=== PATIENT | male | born 1985 | race African-American/Black ===

== ENCOUNTER 2020-07-23 13:13 | Inpatient (IN) | payer BC ==
[~2020-07-23] VITALS: Ht 175.3 cm; Wt 106.0 kg
[2020-07-23] MEDS ORDERED: ESOM40CA PO (13:21)
[2020-07-23] MEDS ORDERED: FAMO40TA61 PO (13:21)
[2020-07-23] MEDS ORDERED: BICT1TAB PO (13:21)
[2020-07-28] MEDS ORDERED: MEPERIDINE/PF 25MG/0.5ML IVPush PRN (08:30)
[2020-07-28] MEDS ORDERED: OXYcodone 5 MG/5 ML ORAL.SOL UDC PO PRN (08:30)
[2020-07-28] MEDS ORDERED: hydrALAzine 20 MG/ML, 1ML IV PRN (08:30)
[2020-07-28] MEDS ORDERED: PROMETHAZINE 25 MG/ML, 1ML IVPush PRN (08:30)
[2020-07-28] MEDS ORDERED: ACETAMINOPHEN 325 MG TABLET PO PRN (08:30)
[2020-07-28] MEDS ORDERED: LABETALOL 5MG/ML, 20ML IV PRN (08:30)
[2020-07-28] MEDS ORDERED: METHOCARBAMOL 1,000 MG in DEXTROSE 5% 100 ML IV PRN (08:30)
[2020-07-28] MEDS ORDERED: HYDROmorphone 1 MG/ML, 1ML INJ IVPush PRN (08:30)
[2020-07-28] MEDS ORDERED: EPHEDRINE 50 MG/ML, 1ML IVPush PRN (08:30)
[2020-07-28] MEDS ORDERED: ONDANSETRON 2MG/ML, 2ML IVPush PRN ×2 (08:30→13:00)
[2020-07-28] MEDS ORDERED: CHLORHEXIDINE 15 ML UDC ONE (09:17)
[2020-07-28] MEDS ORDERED: LACTATED RINGERS 1,000 ML IV SCH (09:30)
[2020-07-28] MEDS ORDERED: CHLORHEXIDINE 15 ML UDC MM ONE (09:30)
[2020-07-28] MEDS ORDERED: BUPIVACAINE/PF 0.5% ONE (10:41)
[2020-07-28] MEDS ORDERED: EPINEPHRINE 1 MG/ML, 1ML ONE (10:41)
[2020-07-28] MEDS ORDERED: GLYCOPYRROLATE 0.2MG/1ML, 5ML ONE (11:21)
[2020-07-28] MEDS ORDERED: CEFAZOLIN 1,000 MG ONE (11:21)
[2020-07-28] MEDS ORDERED: DEXAMETHASONE 4 MG/ML, 1ML ONE (11:21)
[2020-07-28] MEDS ORDERED: ONDANSETRON 2MG/ML, 2ML ONE (11:21)
[2020-07-28] MEDS ORDERED: SUCCINYLCHOLINE 20 MG/ML, 10ML ONE (11:21)
[2020-07-28] MEDS ORDERED: PROPOFOL 10 MG/ML, 20ML ONE (11:21)
[2020-07-28] MEDS ORDERED: NEOSTIGMINE 1 MG/ML, 10ML ONE (11:21)
[2020-07-28] MEDS ORDERED: BUPIVACAINE/PF-EPI 0.5% 1:200K INFIL ONE (11:21)
[2020-07-28] MEDS ORDERED: FENTANYL PF 250 MCG/5ML ONE (11:25)
[2020-07-28] MEDS ORDERED: FENTANYL PF 100 MCG/2ML ONE ×3 (11:56→13:15)
[2020-07-28] MEDS ORDERED: DIPHENHYDRAMINE 50 MG/ML, 1ML IV PRN (13:00)
[2020-07-28] MEDS ORDERED: ENALAPRILAT 1.25 MG/ML, 2ML IV PRN (13:00)
[2020-07-28] MEDS ORDERED: PHENOL THROAT SPRAY BOTTLE MM PRN (13:00)
[2020-07-28] MEDS ORDERED: hydrALAzine 20 MG/ML, 1ML IVPush PRN (13:00)
[2020-07-28] MEDS ORDERED: PROMETHAZINE 25 MG/ML, 1ML IM PRN (13:00)
[2020-07-28] MEDS ORDERED: morphine SULFATE 10 MG/ML, 1ML IVPush PRN (13:00)
[2020-07-28] MEDS ORDERED: PROMETHAZINE 12.5 MG SUPP PR PRN (13:00)
[2020-07-28] MEDS ORDERED: LORazepam 2 MG/ML, 1ML IV PRN (13:00)
[2020-07-28] MEDS ORDERED: OXYcodone 5 MG/5 ML ORAL.SOL UDC ONE (13:16)
[2020-07-28] MEDS: FENTANYL PF 100 MCG/2ML IV PRN ×2 (13:16→13:21)
[2020-07-28] MEDS: HYDROcodone/APAP 7.5-325MG/15ML UDC PO PRN (18:07)
[2020-07-28 19:24] VITALS: BP 122/81
[2020-07-28] MEDS: FAMOTIDINE 20 MG/2 ML IVPush SCH (22:09)
[2020-07-28 23:53] VITALS: BP 117/74
[2020-07-29] MEDS ORDERED: LACTATED RINGERS 1,000 ML IV SCH (02:00)
[2020-07-29] MEDS: HYDROcodone/APAP 7.5-325MG/15ML UDC PO PRN (02:41)
[2020-07-29 02:59] VITALS: BP 132/82
[2020-07-29 06:05] LABS: MEAN CORPUSCULAR HEMOGLOBIN 20.5 pg (27.5-34.5); MEAN CORPUSCULAR HGB CONC 31.1 g/dL (33.2-36.2); MEAN PLATELET VOLUME 9.3 fL (7.4-10.4); PLATELET COUNT 223 x10^3/uL (130-400); RED BLOOD COUNT 5.28 x10^6/uL (4.38-5.82); RED CELL DISTRIBUTION WIDTH 18.8 % (9.4-14.8)
[2020-07-29 06:12] LABS: ALBUMIN 3.1 g/dL (3.4-5.0); ANION GAP 4 mmol/L (5-15); CALCIUM 8.9 mg/dL (8.5-10.1); CHLORIDE 107 mmol/L (98-107); CREATININE 1.03 mg/dL (0.7-1.3)
[2020-07-29 06:49] LABS: MD YES
[2020-07-29 06:53] LABS: ANISOCYTOSIS 2+; BASOS#(MANUAL) 0.16 x10^3/uL (0-0.1); BASOS% (MANUAL) 2 % (0-1); EOS#(MANUAL) 0.23 x10^3/uL (0.0-0.4); EOS% (MANUAL) 3 % (1-7); HYPOCHROMIA 2+; LYMPH#(MANUAL) 1.79 x10^3/uL (1-3.4); LYMPHS% (MANUAL) 23 % (22-44); MICROCYTOSIS 2+; MONOS#(MANUAL) 0.62 x10^3/uL (0.3-2.7); MONOS% (MANUAL) 8 % (2-9); OVALOCYTES 1+; POLYCHROMASIA 1+; SEG#(MANUAL) 4.99 x10^3/uL (1.8-6.8); SEGS% (MANUAL) 64 % (42-75); TARGET CELLS 1+
[2020-07-29 06:54] LABS: <PLATELET ESTIMATE> ADEQUATE; <PLT MORPHOLOGY> NORMAL PLT MORPH
[2020-07-29 08:04] VITALS: BP 143/74
[2020-07-29] MEDS: FAMOTIDINE 20 MG/2 ML IVPush SCH (08:22)
[2020-07-29] MEDS ORDERED: ENOXAPARIN 40 MG/0.4 ML SQ SCH (09:00)
[2020-07-29] MEDS ORDERED: BICTEGRAV/EMTRICIT/TENOFOV ALA TAB PO SCH (09:00)
== END 2020-07-29 10:01 | disposition home or self-care (01) | DRG 328 ==
LOC: 3N 13:13 → UNDOADMIN 13:13 → 3N 18:34 → ORIP 18:34 → 4NE 07-28 14:47 → DCLOUNGE 07-29 09:51
PROVIDERS: ADMIT Thoracic Surgery (Cardiothoracic Vascular Surgery); ATTEND Thoracic Surgery (Cardiothoracic Vascular Surgery)
PROC: 0BQT4ZZ Repair Diaphragm, Percutaneous Endoscopic Approach (ICD-10-PCS; 2020-07-28)
PROC: 0DB64ZZ Excision of Stomach, Percutaneous Endoscopic Approach (ICD-10-PCS; principal; 2020-07-28 11:00)
DX: K31.4 Gastric diverticulum (principal); K44.9 Diaphragmatic hernia without obstruction or gangrene; E66.01 Morbid (severe) obesity due to excess calories; K21.9 Gastro-esophageal reflux disease without esophagitis; R13.10 Dysphagia, unspecified; K66.0 Peritoneal adhesions (postprocedural) (postinfection); Z98.84 Bariatric surgery status; Z68.34 Body mass index [BMI] 34.0-34.9, adult; Z79.899 Other long term (current) drug therapy
CPT/HCPCS: 36415; S0020; 80048; 82040; 85025; G0378; J0171; J0690; J1100; J1650; J2405; J2704; J2710; J3010; J0330; J2270; J2800; J7120

== ENCOUNTER → 2020-07-23 | Outpatient (CLI) | payer BC ==
[~2020-07-23] MED LIST: BICT1TAB PO; ESOM40CA PO; FAMO40TA61 PO
== END | disposition home or self-care (01) ==
LOC: STAR 12:06
PROVIDERS: ATTEND Thoracic Surgery (Cardiothoracic Vascular Surgery)
DX: Z01.812 Encounter for preprocedural laboratory examination (principal); K44.9 Diaphragmatic hernia without obstruction or gangrene; Z20.828 Contact with and (suspected) exposure to other viral communicable diseases
CPT/HCPCS: 36415; 87635